=== PATIENT | male | born 1970 | race Hispanic/Latino ===

== ENCOUNTER 2018-10-12 08:08 | Emergency (ER) | payer OTHER | END 2018-10-12 09:00 | disposition home or self-care (01) | LOC: ERS 08:08 | DX: S91.052A Open bite, left ankle, initial encounter (principal); E78.5 Hyperlipidemia, unspecified; Z79.899 Other long term (current) drug therapy; W59.11XA Bitten by nonvenomous snake, initial encounter | CPT/HCPCS: 99283 ==

== ENCOUNTER 2020-03-28 07:53 | Emergency (ER) | payer OTHER, SELFPAY ==
[2020-03-28 15:29] LABS: SARS-CoV-2 MS2 Positive; SARS-CoV-2 N Gene Positive; SARS-CoV-2 S Gene Positive; SARS-CoV-2 by NAA DETECTED (NotDetected); SARS-CoV-2 orf1ab Positive
== END 2020-03-28 08:26 | disposition home or self-care (01) ==
LOC: ERS 07:53
DX: U07.1 COVID-19 (principal); E78.5 Hyperlipidemia, unspecified; E78.00 Pure hypercholesterolemia, unspecified
CPT/HCPCS: 87635; 99283; U0003

== ENCOUNTER 2021-03-16 07:04 | Outpatient (CLI) | payer OTHER | END 2021-03-16 07:05 | disposition home or self-care (01) | LOC: BICULT 07:04 | PROVIDERS: ATTEND Family Medicine | DX: R10.11 Right upper quadrant pain (principal); N28.81 Hypertrophy of kidney; Q61.3 Polycystic kidney, unspecified | CPT/HCPCS: 76700 ==

== ENCOUNTER 2021-05-05 09:49 | Emergency (ER) | payer OTHER, SELFPAY ==
[2021-05-05 17:51] LABS: SARS-CoV-2 PCR by NAA DETECTED (NotDetected)
== END 2021-05-05 10:44 | disposition home or self-care (01) ==
LOC: ERS 09:49
DX: U07.1 COVID-19 (principal); E78.5 Hyperlipidemia, unspecified; E78.00 Pure hypercholesterolemia, unspecified
CPT/HCPCS: 71045; U0003; U0005

== ENCOUNTER 2022-07-30 16:17 | Emergency (ER) | payer OTHER, SELFPAY | END 2022-07-30 20:51 | disposition home or self-care (01) | LOC: ERS 16:17 | DX: S06.5X9A Traumatic subdural hemorrhage with loss of consciousness of unspecified duration, initial encounter (principal); I10 Essential (primary) hypertension; W18.30XA Fall on same level, unspecified, initial encounter | CPT/HCPCS: 70450; 72125 ==

== ENCOUNTER 2022-08-08 11:35 | Outpatient (CLI) | payer OTHER | END 2022-08-08 11:36 | disposition home or self-care (01) | LOC: SCSCT 11:35 | PROVIDERS: ATTEND Psychiatry & Neurology Neurology | DX: I62.00 Nontraumatic subdural hemorrhage, unspecified (principal) | CPT/HCPCS: 70450 ==

== ENCOUNTER 2022-08-12 09:54 | Outpatient (CLI) | payer OTHER ==
[~2022-08-12 09:54] MED LIST: Magnevist 469MG/ML 20 ML VIAL ONE
== END 2022-08-12 09:55 | disposition home or self-care (01) ==
LOC: MRI 09:54
PROVIDERS: ATTEND Psychiatry & Neurology Neurology
DX: S06.5XAA Traumatic subdural hemorrhage with loss of consciousness status unknown, initial encounter (principal)
CPT/HCPCS: 70553; A9579